=== PATIENT | female | born 1985 | race Caucasian/White ===

== ENCOUNTER 2022-07-18 11:38 | Outpatient (CLI) | payer OTHER, SELFPAY | END 2022-07-18 11:39 | disposition home or self-care (01) | LOC: LKVREF 07-23 10:46 | PROVIDERS: Visit Provider Student in an Organized Health Care Education/Training Program | DX: R35.0 Frequency of micturition (principal); R30.0 Dysuria; N39.0 Urinary tract infection, site not specified | CPT/HCPCS: 87086 ==